=== PATIENT | female | born 1940 | race Caucasian/White ===

== ENCOUNTER 2022-09-18 08:54 | Observation (INO) | payer MEDICARE, OTHER ==
[2022-09-18 09:39] LABS: #Eosinphils 0.3 thou/uL (0.0-0.7); #Monocytes 0.4 thou/uL (0.11-0.59); #Neutrophils 5.5 thou/uL (1.40-6.50); %Basophils 0.1 % (0.0-1.0); %Eosinophils 4.6 % (0.0-10.0); %Lymphocytes 14.8 % (21.0-51.0); %Monocytes 4.8 % (0.0-10.0); %Neutrophils 75.4 % (42.0-75.0); Hemoglobin 10.2 g/dL (12.0-16.0); Mean Corpuscular HGB CONC 33.8 g/dL (32.0-36.0); Mean Corpuscular Hemoglobin 31.1 pg (27.0-31.0); Mean Corpuscular Volume 92.1 fl (78.0-98.0); Mean Platelet Volume 8.5 fL (7.4-10.4); Platelet Count 357 10x3/uL (130-400); RBC Distribution Width 13.4 % (11.5-14.5); Red Blood Cell (RBC) Count 3.28 mill/uL (4.20-5.40); White Blood Cell (WBC) Count 7.2 10x3/uL (4.8-10.8)
[2022-09-18] MEDS ORDERED: Dexamethasone 4 mg/ml Vial ONE (09:52)
[2022-09-18] MEDS ORDERED: diphenhydrAMINE 50 MG/ML VIAL ONE (09:52)
[2022-09-18 10:05] LABS: ALT (SGPT) Less than 7 U/L (8-55); AST (SGOT) 10 U/L (5-34); Albumin 3.3 g/dL (3.4-4.8); Alkaline Phosphatase 62 U/L (40-110); Anion Gap 14 mmol/L (10-20); BUN (Urea Nitrogen) 14 mg/dL (9.8-20.1); Bilirubin, Total 0.3 mg/dL (0.2-1.2); CK (CPK) 37 U/L (29-168); Calc. Creatinine Clearance 0 mL/min (70-130); Calcium 8.6 mg/dL (7.8-10.44); Carbon Dioxide 21 mmol/L (23-31); Chloride 93 mmol/L (98-107); Estimated GFR 87; Globulin 3.9 g/dL (2.4-3.5); Glucose 176 mg/dL (83-110); Lipase 16 U/L (8-78); Potassium 4.1 mmol/L (3.5-5.1); Protein, Total 7.2 g/dL (5.8-8.1); Sodium 124 mmol/L (136-145)
[2022-09-18] MEDS ORDERED: Acetaminophen 325 MG TAB PO PRN (11:58)
[2022-09-18] MEDS ORDERED: Ondansetron PF 4 MG/2 ML Vial IVP PRN (11:58)
[2022-09-18] MEDS ORDERED: Glucagon 1 MG/ML KIT IM PRN (12:10)
[2022-09-18] MEDS ORDERED: Dextrose 50% Abboject 50 ML SYRINGE SLOW IVP PRN (12:10)
[2022-09-18] MEDS ORDERED: Dextrose 5% in Water 1,000 ML IV PRN (12:10)
[2022-09-18] MEDS: Sodium Chloride 1 GM TAB PO SCH ×2 (13:24→17:36)
[2022-09-18] MEDS ORDERED: methylPREDNISolone Sod Succ 40 MG VIAL ONE (14:08)
[2022-09-18] MEDS: methylPREDNISolone Sod Succ 40 MG VIAL IVP SCH ×2 (14:23→22:55)
[2022-09-18] MEDS: metFORMIN 500 MG TAB PO SCH (17:48)
[2022-09-18] MEDS ORDERED: HumaLOG 300 UNITS/3 ML VIAL ONE ×2 (18:11→18:21)
[2022-09-18] MEDS: HumaLOG 300 UNITS/3 ML VIAL SC PRN (18:29)
[2022-09-18] MEDS: diphenhydrAMINE 25 MG CAP PO PRN (22:55)
[2022-09-19 00:30] VITALS: BMI 20.2
[2022-09-19 05:53] LABS: #Monocytes 0.3 thou/uL (0.11-0.59); #Neutrophils 5.1 thou/uL (1.40-6.50); %Basophils 0.3 % (0.0-1.0); %Eosinophils 0.2 % (0.0-10.0); %Lymphocytes 15.7 % (21.0-51.0); %Monocytes 4.5 % (0.0-10.0); %Neutrophils 78.7 % (42.0-75.0); Hemoglobin 9.4 g/dL (12.0-16.0); Mean Corpuscular HGB CONC 33.1 g/dL (32.0-36.0); Mean Corpuscular Hemoglobin 30.8 pg (27.0-31.0); Mean Corpuscular Volume 93.1 fl (78.0-98.0); Mean Platelet Volume 8.7 fL (7.4-10.4); Platelet Count 344 10x3/uL (130-400); RBC Distribution Width 13.3 % (11.5-14.5); Red Blood Cell (RBC) Count 3.05 mill/uL (4.20-5.40); White Blood Cell (WBC) Count 6.4 10x3/uL (4.8-10.8)
[2022-09-19] MEDS: methylPREDNISolone Sod Succ 40 MG VIAL IVP SCH ×2 (05:53→13:49)
[2022-09-19] MEDS: HumaLOG 300 UNITS/3 ML VIAL SC PRN ×3 (06:12→15:53)
[2022-09-19 06:21] LABS: Anion Gap 12 mmol/L (10-20); BUN (Urea Nitrogen) 15 mg/dL (9.8-20.1); Calc. Creatinine Clearance 58 mL/min (70-130); Calcium 8.5 mg/dL (7.8-10.44); Carbon Dioxide 21 mmol/L (23-31); Chloride 99 mmol/L (98-107); Estimated GFR 88; Glucose 195 mg/dL (83-110); Potassium 4.2 mmol/L (3.5-5.1); Sodium 128 mmol/L (136-145)
[2022-09-19] MEDS: Sodium Chloride 1 GM TAB PO SCH ×2 (08:42→13:48)
[2022-09-19] MEDS: diphenhydrAMINE 25 MG CAP PO PRN (08:42)
[2022-09-19] MEDS: metFORMIN 500 MG TAB PO SCH (08:42)
[2022-09-19 10:40] VITALS: TEMP 97.6
[2022-09-19 15:23] VITALS: BP 131/74
== END 2022-09-19 16:54 | disposition home or self-care (01) ==
LOC: ERS 08:54 → ERHOLD 11:20 → SURG A 19:24
PROVIDERS: ADMIT Internal Medicine; ATTEND Emergency Medicine
DX: R21 Rash and other nonspecific skin eruption (principal); T45.1X5A Adverse effect of antineoplastic and immunosuppressive drugs, initial encounter; E03.9 Hypothyroidism, unspecified; E87.1 Hypo-osmolality and hyponatremia; C56.9 Malignant neoplasm of unspecified ovary; I10 Essential (primary) hypertension; E11.9 Type 2 diabetes mellitus without complications; Z90.710 Acquired absence of both cervix and uterus
CPT/HCPCS: 71045; 80048; 80053; 82550; 82962 ×2; 83690; 85025 ×2; 93005; 96372; 96374; 96375; 96376 ×2; 97116; 99284; G0378 ×3; 36415; 36416; J1100; J1200; J1650; J1815; J2920